=== PATIENT | female | born 1955 | race African-American/Black ===

== ENCOUNTER 2018-09-10 17:55 | Emergency (ER) | payer OTHER ==
[~2018-09-10] VITALS: Ht 154.9 cm; Wt 159.0 kg
[~2018-09-10 17:55] MED LIST: BENADRYL25 M1 PO; DOXYCYCL HYC100 MG PO; ELIMITE5 % TOP; MEDDOSEPAK PO; TRIAMCINOLON0.11 TOP
[2018-09-10 19:09] LABS: ALBUMIN 4.3 g/dL (3.2-5.0); ALKALINE PHOSPHATASE 86 u/l (38-126); ANION GAP 16 (6-22 (CALC)); BILIRUBIN, TOTAL 0.6 mg/dL (0.0-1.4); BUN 13 mg/dL (8-23); BUN/CREATININE RATIO 22 (12-20 (CALC)); CARBON DIOXIDE 25 mmol/l (22-30); CHLORIDE 101 mmol/l (95-108); CREATININE 0.6 mg/dL (0.5-1.0); GFR > 60 ML/MIN (>=60 (CALC)); GFR FOR AFR.AMER. > 60 ML/MIN (>=60 (CALC)); POTASSIUM 4.4 mmol/l (3.5-5.1); SGOT/AST 14 u/l (9-36); SODIUM 138 mmol/l (137-146); TOTAL PROTEIN 8.3 g/dL (6.3-8.2)
[2018-09-10 19:20] LABS: URINE BILIRUBIN - DIPSTICK NEGATIVE (NEGATIVE); URINE BLOOD DIPSTICK TRACE-INTACT (NEGATIVE); URINE COLOR YELLOW; URINE GLUCOSE - DIPSTICK >=1000 mg/dL (NEGATIVE); URINE KETONE 15 mg/dL (NEGATIVE); URINE LEUK ESTERASE TRACE (NEGATIVE); URINE NITRITE - DIPSTICK NEGATIVE (Negative); URINE PH 5.5 (4.5-8.0); URINE PROTEIN - DIPSTICK NEGATIVE (NEG-TRACE); URINE SPECIFIC GRAVITY 1.025
[2018-09-10 19:21] LABS: MYOGLOBIN 28 ng/mL (0 - 62)
[2018-09-10 19:34] LABS: IMMATURE GRANULOCYTES 0.3 % (0.0-5.0); MEAN CELL VOLUME 83.2 fL CALC (80.0-100.0); MEAN CORPUSCULAR HGB 28.1 pG CALC (26.0-32.0); MEAN CORPUSCULAR HGB CONC 33.8 g/L CALC (32.0-36.0); NEUT# 5.38 thou/uL (2.00-7.15); RED BLOOD COUNT 5.41 mill/uL (4.20-5.60); RED CELL DISTRI WIDTH 13.7 % (11.5-15.5)
[2018-09-10 19:35] LABS: HEMOGLOBIN 15.2 g/dl (12.0-16.0)
[2018-09-10 20:08] VITALS: BP 157/82
== END 2018-09-10 20:22 | disposition home or self-care (01) | DRG 313 ==
LOC: ED 17:55
PROVIDERS: Emergency Medicine
DX: R07.89 Other chest pain (principal); M79.601 Pain in right arm

== ENCOUNTER → 2018-09-27 | Outpatient (REF) | payer OTHER ==
[~2018-09-27] MED LIST changes: +FLONASE AL50 MCG/ACT; +LIPITOR10 M1 PO; +LIPITOR20 M1 PO; +LISINOPRIL10 MG PO; +METFORMIN HCL1000 MG PO; +METFORMIN500 MG PO
[2018-09-27 09:04] LABS: CHOLESTEROL HDL RATIO 4.2 (<4.4 (CALC))
[2018-09-27 09:27] LABS: TSH, 3RD GENERATION 5.94 uIU/mL (0.47 - 4.68)
== END | disposition home or self-care (01) | DRG 948 ==
LOC: LAB 08:00
PROVIDERS: ATTEND Nurse Practitioner Family
DX: R79.9 Abnormal finding of blood chemistry, unspecified (principal); Z68.43 Body mass index [BMI] 50.0-59.9, adult; M79.621 Pain in right upper arm; M79.631 Pain in right forearm

== ENCOUNTER → 2018-09-28 | Outpatient (REF) | payer OTHER | END | disposition home or self-care (01) | DRG 951 | LOC: MAMMO 15:00 | PROVIDERS: ATTEND Internal Medicine | DX: Z12.31 Encounter for screening mammogram for malignant neoplasm of breast (principal); N95.1 Menopausal and female climacteric states ==

== ENCOUNTER → 2018-10-24 | Outpatient (REF) | END | disposition home or self-care (01) | DRG 696 | LOC: LAB 15:55 | PROVIDERS: ATTEND Nurse Practitioner Family | DX: R35.0 Frequency of micturition (principal); R79.89 Other specified abnormal findings of blood chemistry ==

== ENCOUNTER → 2018-11-03 | Outpatient (REF) | payer OTHER ==
[~2018-11-03] VITALS: Ht 162.6 cm; Wt 130.6 kg
[2018-11-03 09:43] VITALS: BP 148/80
== END | disposition home or self-care (01) | DRG 951 ==
LOC: FIORUCCI 09:15
PROVIDERS: ATTEND Surgery
DX: Z12.11 Encounter for screening for malignant neoplasm of colon (principal)

== ENCOUNTER 2018-11-10 07:54 | Day surgery (SDC) | payer OTHER ==
[2018-11-10 09:29] VITALS: BP 157/88
== END 2018-11-10 09:50 | disposition home or self-care (01) | DRG 951 ==
LOC: ENDO 07:54
PROVIDERS: ATTEND Surgery
PROC: 0DJD8ZZ Inspection of Lower Intestinal Tract, Via Natural or Artificial Opening Endoscopic (ICD-10-PCS; principal; 2018-11-10)
DX: Z12.11 Encounter for screening for malignant neoplasm of colon (principal); K57.30 Diverticulosis of large intestine without perforation or abscess without bleeding; K64.8 Other hemorrhoids; E11.9 Type 2 diabetes mellitus without complications; I10 Essential (primary) hypertension; F17.210 Nicotine dependence, cigarettes, uncomplicated

== ENCOUNTER 2021-06-22 18:06 | Emergency (ER) | payer BC ==
[~2021-06-22] VITALS: Ht 162.6 cm; Wt 130.0 kg
[2021-06-22 19:44] LABS: HEMATOCRIT 40.4 % (37.0-47.0); HEMOGLOBIN 13.3 g/dl (12.0-16.0); IMMATURE GRANULOCYTES 0.2 % (0.0-5.0); MEAN CELL VOLUME 84.5 fL CALC (80.0-100.0); MEAN CORPUSCULAR HGB 27.8 pG CALC (26.0-32.0); MEAN CORPUSCULAR HGB CONC 32.9 g/dL CAL (32.0-36.0); NEUT# 7.64 thou/uL (2.00-7.15); RED BLOOD COUNT 4.78 mill/uL (4.20-5.60); RED CELL DISTRI WIDTH 13.7 % (11.5-15.5)
[2021-06-22 19:46] LABS: URINE BILIRUBIN - DIPSTICK NEGATIVE (NEGATIVE); URINE BLOOD DIPSTICK NEGATIVE (NEGATIVE); URINE COLOR YELLOW; URINE GLUCOSE - DIPSTICK NEGATIVE (NEGATIVE); URINE KETONE NEGATIVE (NEGATIVE); URINE PROTEIN - DIPSTICK NEGATIVE (NEG-TRACE)
[2021-06-22 19:48] LABS: URINE LEUK ESTERASE SMALL (NEGATIVE); URINE NITRITE - DIPSTICK NEGATIVE (Negative)
[2021-06-22 19:55] LABS: URINE RBC 0-2 RBC/hpf (0-5); URINE SQUAMOUS EPITHELIAL CELL FEW EPI/hpf (0-FEW)
[2021-06-22 19:59] LABS: ALBUMIN 4.2 g/dL (3.2-5.0); AMYLASE 69 u/l (30-110); ANION GAP 13 (6-22 (CALC)); BILIRUBIN, TOTAL 0.8 mg/dL (0.0-1.4); BUN 9 mg/dL (8-23); BUN/CREATININE RATIO 12 (12-20 (CALC)); CARBON DIOXIDE 25 mmol/l (22-30); CHLORIDE 101 mmol/l (95-108); CREATININE 0.8 mg/dL (0.5-1.0); GFR > 60 ML/MIN (>=60 (CALC)); GFR FOR AFR.AMER. > 60 ML/MIN (>=60 (CALC)); LIPASE 20 u/l (23-300); MAGNESIUM 1.4 mg/dL (1.6-2.3); SODIUM 134 mmol/l (137-146); TOTAL PROTEIN 8.4 g/dL (6.3-8.2)
[2021-06-22 20:00] LABS: ALKALINE PHOSPHATASE 85 u/l (38-126); SGOT/AST 40 u/l (9-36)
[2021-06-22 20:11] LABS: MYOGLOBIN 53 ng/mL (0 - 62)
[2021-06-22 20:29] LABS: TSH, 3RD GENERATION 0.77 uIU/mL (0.47 - 4.68)
[2021-06-22] MEDS ORDERED: MAGNESIUM OXID400 M1 PO (20:59)
[2021-06-22] MEDS ORDERED: MIRALAX17 GM PO (20:59)
[2021-06-22] MEDS ORDERED: PEPCID20 MG PO (21:00)
[2021-06-22 21:17] VITALS: BP 165/81
== END 2021-06-22 21:45 | disposition home or self-care (01) | DRG 948 ==
LOC: ED 18:06
PROVIDERS: Family Medicine
DX: R53.1 Weakness (principal); E83.42 Hypomagnesemia; K59.00 Constipation, unspecified; K21.9 Gastro-esophageal reflux disease without esophagitis; E11.9 Type 2 diabetes mellitus without complications; I10 Essential (primary) hypertension; F17.200 Nicotine dependence, unspecified, uncomplicated; Z79.84 Long term (current) use of oral hypoglycemic drugs
CPT/HCPCS: S0164

== ENCOUNTER 2022-01-04 15:08 | Emergency (ER) | payer OTHER, MEDICARE, BC ==
[~2022-01-04] VITALS: Ht 162.6 cm; Wt 113.0 kg
[~2022-01-04 15:08] MED LIST changes: +MAGNESIUM OXID400 M1 PO; +MIRALAX17 GM PO; +PEPCID20 MG PO
[2022-01-04 15:13] VITALS: BP 157/93
[2022-01-04 15:16] VITALS: BP 158/88
[2022-01-04 15:30] VITALS: BP 164/88
[2022-01-04 15:46] VITALS: BP 144/78
[2022-01-04 16:00] VITALS: BP 140/84
[2022-01-04] MEDS ORDERED: NAPROXEN500 MG PO (18:11)
[2022-01-04] MEDS ORDERED: METHOCARBAMOL500 MG PO (18:11)
[2022-01-04 18:32] VITALS: BP 140/84
== END 2022-01-04 18:48 | disposition home or self-care (01) | DRG 605 ==
LOC: ED 15:08
DX: S00.83XA Contusion of other part of head, initial encounter (principal); M54.2 Cervicalgia; M79.604 Pain in right leg; I10 Essential (primary) hypertension; E11.9 Type 2 diabetes mellitus without complications; Z79.84 Long term (current) use of oral hypoglycemic drugs; V49.50XA Passenger injured in collision with unspecified motor vehicles in traffic accident, initial encounter

== ENCOUNTER 2023-03-26 16:24 | Inpatient (IN) | payer MEDICARE ==
[~2023-03-26] VITALS: Ht 165.1 cm; Wt 138.8 kg
[~2023-03-26 16:24] MED LIST changes: +METHOCARBAMOL500 MG PO; +NAPROXEN500 MG PO
--- NOTE | 2023-03-26 16:46 | NUR ---
PT TAKEN TO ER ROOM 2 VIA WHEELCHAIR
--- NOTE | 2023-03-26 16:59 | NUR ---
PT ALERT AND ORIENTED. CC SOB AND FATIGUE. PT STATES THAT SYMPTOMS HAVE PROGRESSIVELY GOTTEN WORST. UPON EXAMINATIONS PT LOWER EXTREMITIES HAVE SIGNIFICANT EDEMA. PROVIDER NOTIFIED. CALL LIGHT WITHIN REACH.
[2023-03-26 17:51] LABS: BASO% 0.1 % (0-3); EOS% 0.1 % (0-8); HEMATOCRIT 41.4 % (37.0-47.0); HEMOGLOBIN 13.5 g/dl (12.0-16.0); IMMATURE GRANULOCYTES 0.3 % (0.0-5.0); LYMPH% 5.6 % (15-41); MEAN CELL VOLUME 87.2 fL CALC (80.0-100.0); MEAN CORPUSCULAR HGB 28.4 pG CALC (26.0-32.0); MEAN CORPUSCULAR HGB CONC 32.6 g/dL CAL (32.0-36.0); MONO% 5.2 % (2-13); NEUT# 12.04 thou/uL (2.00-7.15); NEUT% 88.7 % (42-76); RED BLOOD COUNT 4.75 mill/uL (4.20-5.60); RED CELL DISTRI WIDTH 14.4 % (11.5-15.5)
[2023-03-26 18:01] LABS: ALBUMIN 4.4 g/dL (3.2-5.0); ANION GAP 14 (6-22 (CALC)); BUN 13 mg/dL (8-23); BUN/CREATININE RATIO 16 (12-20 (CALC)); CARBON DIOXIDE 27 mmol/l (22-30); CHLORIDE 103 mmol/l (95-108); CREATININE 0.8 mg/dL (0.5-1.0); GFR FOR AFR.AMER. > 60 ML/MIN (>=60 (CALC)); GFR OTHER RACES > 60 ML/MIN (>=60 (CALC)); POTASSIUM 4.3 mmol/l (3.5-5.1); SODIUM 139 mmol/l (137-146); TOTAL PROTEIN 8.8 g/dL (6.3-8.2)
[2023-03-26 18:15] LABS: ALKALINE PHOSPHATASE 103 u/l (38-126); BILIRUBIN, TOTAL 2.2 mg/dL (0.02-1.3); SGOT/AST 491 u/l (9-36)
--- NOTE | 2023-03-26 18:31 | NUR ---
PT HAS DEVELOPED A FEVER SINCE ARIVING AT ER. CURRENT TEMP 102.5 SUBLINGUAL. PROVIDER NOTIFIED.
[2023-03-26 18:43] LABS: URINE BLOOD DIPSTICK Negative (NEGATIVE); URINE COLOR Dark yellow; URINE GLUCOSE - DIPSTICK Negative (NEGATIVE); URINE KETONE Negative (NEGATIVE); URINE LEUK ESTERASE Negative (NEGATIVE); URINE NITRITE - DIPSTICK Negative (Negative); URINE PROTEIN - DIPSTICK Trace mg/dL (NEG-TRACE); URINE UROBILINOGEN - DIPSTICK >=8.0 E.U./dL (0.2)
--- NOTE | 2023-03-26 18:46 | NUR ---
SEPSIS ALERT CALLED
--- NOTE | 2023-03-26 21:15 | NUR ---
TEMP RETAKEN, 100.3 SUBLINGUAL
[2023-03-26] MEDS ORDERED: LOPRESSOR25 M1 PO (22:05)
[2023-03-26] MEDS ORDERED: SINGULAIR10 MG PO (22:06)
--- NOTE | 2023-03-26 22:50 | NUR ---
PT ARRIVE TO ROOM 272 VIA WHEELCHAIR ACCOMPANIE BY ER STAFF AND FAMILY. PT ABLE TO AMBULATE TO SCALE AND BED. PT IS A&OX3. NO S/S OF DISTRESS NOTED BREATHING IS EVEN AND UNLABORED. PT IS AT ROOM AIR O2 IS AT 94%. PT STATES NKDA. IV TO LAC 20G PATENT AND FLUSHES WELL. NO CANCERN OR NEEDS VOICED. CALL LIGHT IN REACH AND BED IN LOWEST POSITION.
[2023-03-26 22:53] VITALS: BP 105/60
--- NOTE | 2023-03-26 22:55 | NUR ---
TEMP RETAKEN, 99.3 SUBLINGUAL
--- NOTE | 2023-03-26 22:56 | NUR ---
PT CARE REPORT GIVEN TO [facility]. PT TRANSPORTED TO [facility] ROOM 272.
--- NOTE | 2023-03-27 00:35 | NUR ---
ER DOCTOR ARUN NOTIFIED OF PT MEETING CRETERIA OF SEPSIS AND IF HE RECOMENDED TELE MONITORING. ER SEND TELE # 05. TELE IN PLACE PT IS S-TACH 113. NO S/S OF DISTRESS NOTED. BREATHING EVEN AND UNLABORED. NO NEEDS OR CONCERN VOICED. FAMILY MEMBER AT BEDSIDE. CALL LIGHT IN REACH AND BED IN LOWEST POSITION.
--- NOTE | 2023-03-27 04:17 | NUR ---
PT IN BED RESTING WITH EYES CLOSED BREATHING EVEN AND UNLABORED. NO S/S OF DISTRESS NOTED. FAMILY MEMBER AT BEDSIDE. CALL LIGHT IN REACH AND BED IN LOWEST POSITION.
[2023-03-27 04:19] VITALS: BP 122/62
[2023-03-27 05:19] LABS: HEMATOCRIT 37.7 % (37.0-47.0); HEMOGLOBIN 12.3 g/dl (12.0-16.0); MEAN CELL VOLUME 87.5 fL CALC (80.0-100.0); MEAN CORPUSCULAR HGB 28.5 pG CALC (26.0-32.0); MEAN CORPUSCULAR HGB CONC 32.6 g/dL CAL (32.0-36.0); RED BLOOD COUNT 4.31 mill/uL (4.20-5.60); RED CELL DISTRI WIDTH 14.6 % (11.5-15.5)
[2023-03-27 05:22] VITALS: BP 122/62
[2023-03-27 05:54] LABS: ANION GAP 14 (6-22 (CALC)); BUN 15 mg/dL (8-23); BUN/CREATININE RATIO 19 (12-20 (CALC)); CALCULATED LDLCHOLESTEROL 38 mg/dL (62-129 (CALC)); CARBON DIOXIDE 22 mmol/l (22-30); CHLORIDE 104 mmol/l (95-108); CHOLESTEROL HDL RATIO 1.7 (<4.4 (CALC)); CREATININE 0.8 mg/dL (0.5-1.0); GFR FOR AFR.AMER. > 60 ML/MIN (>=60 (CALC)); GFR OTHER RACES > 60 ML/MIN (>=60 (CALC)); HDL CHOLESTEROL 73 mg/dL (39.0-59.0); MAGNESIUM 1.3 mg/dL (1.6-2.3); SODIUM 135 mmol/l (137-146); TOTAL CHOLESTEROL 121 mg/dl (0-199); TOTAL TRIGLYCERIDES 52 mg/dl (0-149); VLDL CHOLESTROL 10 mg/dl (1-41 (CALC))
--- NOTE | 2023-03-27 07:00 | NUR ---
RECEIVED BEDSIDE REPORT FROM CHICO ROCA. PT RESTING IN RECLINER. PT REFUSING LAB DRAWS. EDUCATED ON IMPORTANCE OF MONITORING. PT IS TACHYCARDIC WITH HARD TO READ RHYTHM. EKG ORDERED BY DR THORPE. SHOWS SINUS TACHYCARDIA WITH PVC'S. ALL SAFETY MEASURES IN PLACE. FAMILY IN ROOM WITH PT.
[2023-03-27 07:53] VITALS: BP 101/56
--- NOTE | 2023-03-27 19:22 | NUR ---
REPORT RECEIVED FROM Imelda STOUT RN.
--- NOTE | 2023-03-27 19:45 | NUR ---
ZOFRAN GIVEN FOR NAUSEA. PATIENT HAS VOMITED X3 PER DAUGHTER. JUST PRIOR TO WRITTER ARRIVAL PATIENT VOMITED IN BATH BASIN, DARK YELLOW GREEN LIQUID EMESIS NOTED. PATIENT ALSO COMPLAINING OF SEVERE EPIGASTRIC PAIN.PATIENT BEST DESCRIBES IT STABBING IN NATURE.
--- NOTE | 2023-03-27 19:55 | NUR ---
CALL TO DR THORPE AT [phone] NOTIFIED PROVIDER OF PATIENT COMPLAINT OF SEVERE PAIN IN HER EPIGASTRIC REGION, AND REPORTED GREEN YELLO EMESIS X3. NOTIFIED PROVIDER THAT DAUGHTER AT BEDSIDE IS SUGGESTING TORADOL FOR HER MOTHERS PAIN. PER PROVIDER HE WILL REVIEW THE PATIENTS CHART AND WILL EITHER ADD PRN MORPHINE OR TORADOL. PATIENT/ DAUGHTERS AT BEDSIDE UPDATED ON POC.
--- NOTE | 2023-03-27 20:27 | NUR ---
CALL TO [facility] REGARDING UNVERFIED TORADOL ORDER. SPOKE TO DUKE (ESTEE) AT PHONE NUMBER , PER TECH HE WILL LET THE PHARMACIST KNOW.
[2023-03-27 20:35] VITALS: BP 160/87
--- NOTE | 2023-03-27 21:06 | NUR ---
PATIENT UNABLE TO TOLERATE HER PO LOPRESSOR. CURRENT B/P 160/87. NOTIFIED DR ARANA OF THESE FINDINGS, PER MD HE WILL ADD HYDRALAZINE FOR B/P >180. PROVIDER STATES, B/P PROBABLY ELEVATED FROM CURRENT VOMITNING. PROVIDER MADE AWARE OF CURRENT BLOOD SUGAR OF 221 AND PATIENTS CURRENT AVERSION TO FOOD DUE TO VOMITING. WRITTER SUGGESTING TO HOLD PM LEVEMIR SINCE PATIENT IS NOT EATING. PER DR THOPRE WRITTER CAN GIVE LEVEMIR AND MONITOR FOR S/S OF HYPOGLYCEMIA.
--- NOTE | 2023-03-27 22:20 | NUR ---
AZITHROMYCIN HUNG AT THIS TIME. IV DRESSING CHANGED AND SECURED WITH COBAN, IV FLUSHED AND PATENT.
--- NOTE | 2023-03-27 22:22 | NUR ---
DAUGHTER (XIN) AT BEDSIDE UPDATED ON PLAN OF CARE, CONFERENCED WITH OTHER DAUGHTER, (KRISTI) VIA PHONE. PER KRISTI, THEY DO NOT WANT HER MOTHER TO HAVE LEVEMIR TONIGHT; DAUGHTER REPORTS PATIENT HAS NEVER BEEN ON INSULIN, WELL PATIENT NOT BEING ABLE TO EAT RELATED TO ULTRASOUND AND VOMINTING, CONCERNS TO WHY THE PATIENT SHOULD NOT GET INSULING TONIGHT. DAUGHTER STATES "WE ARE REFUSING LEVEMIR". PATIENT AGREEABLE WITH DAUGHTERS SUGGESTION.
--- NOTE | 2023-03-28 00:20 | NUR ---
MAXIPINE HUNG AT THIS TIME.
--- NOTE | 2023-03-28 00:45 | NUR ---
PATIENT REMINDED THAT SHE IS NPO IN PREPARATION FOR HER ULTRASOUND THIS AM.
--- NOTE | 2023-03-28 00:55 | NUR ---
[place] HUNG AT THIS TIME.
[2023-03-28 00:58] VITALS: BP 140/73
--- NOTE | 2023-03-28 04:35 | NUR ---
LAB AT BEDSIDE OBTIANING MORNING LABS,
[2023-03-28 04:45] VITALS: BP 143/74
[2023-03-28 04:47] LABS: HEMATOCRIT 37.8 % (37.0-47.0); HEMOGLOBIN 12.2 g/dl (12.0-16.0); MEAN CELL VOLUME 86.9 fL CALC (80.0-100.0); MEAN CORPUSCULAR HGB CONC 32.3 g/dL CAL (32.0-36.0); RED BLOOD COUNT 4.35 mill/uL (4.20-5.60); RED CELL DISTRI WIDTH 14.4 % (11.5-15.5)
[2023-03-28 04:52] LABS: ALKALINE PHOSPHATASE 86 u/l (38-126); ANION GAP 11 (6-22 (CALC)); BUN 15 mg/dL (8-23); BUN/CREATININE RATIO 20 (12-20 (CALC)); CARBON DIOXIDE 25 mmol/l (22-30); CHLORIDE 102 mmol/l (95-108); CREATININE 0.8 mg/dL (0.5-1.0); GFR FOR AFR.AMER. > 60 ML/MIN (>=60 (CALC)); GFR OTHER RACES > 60 ML/MIN (>=60 (CALC)); POTASSIUM 3.8 mmol/l (3.5-5.1); SGOT/AST 130 u/l (9-36); SODIUM 134 mmol/l (137-146); TOTAL PROTEIN 7.3 g/dL (6.3-8.2)
[2023-03-28 05:10] LABS: ALBUMIN 3.5 g/dL (3.2-5.0); BILIRUBIN, TOTAL 0.9 mg/dL (0.02-1.3); MAGNESIUM 1.7 mg/dL (1.6-2.3)
[2023-03-28 06:15] VITALS: BP 132/71
--- NOTE | 2023-03-28 06:30 | NUR ---
PATIENT PLACED ON 2L OF OXYGEN AT THIS TIME. O2 86%. PATIENT AND DAUGHTER AT BEDSIDE DENY ANY DIAGNOSED HX OF SLEEP APNEA. AERIAL SURVEY TECHNICIAN NOTIFIED.
--- NOTE | 2023-03-28 07:32 | NUR ---
BEDSIDE SHIFT REPORT, PT AWAKE ALERT AND ORIENTEAD SITTING UP IN RECLINER, NO C/O DISCOMFORT AT THIS TIME, O2 @ 2/ VIA NC IN PLACE, TELE MONITOR IN PLACE, CALL ANNE IN REACH AND BED LOCKED IN LOWEST POSITION. DAUGHTER AT BEDSIDE.
--- NOTE | 2023-03-28 09:57 | NUR ---
TRANSPORTED OFF UNIT VIA W/C AT THIS TIME TO US, PT ALREADY INFORMED OF PROCEDURE AND REMINDED.
--- NOTE | 2023-03-28 10:41 | NUR ---
PRELIMINARY BLOOD CULTURE RESULTS CALLED TO GIOVANA MUELLER. NO NEW ORDERS AT THIS TIME.
--- NOTE | 2023-03-28 10:45 | NUR ---
RETURNED FROM PROCEDURE AND SETTLED IN RECLINER, ALL NEEDS MET/ADDRESSED.
[2023-03-28 10:51] VITALS: BP 113/70
[2023-03-28 14:57] VITALS: BP 106/57
[2023-03-28 19:00] VITALS: BP 121/63
--- NOTE | 2023-03-28 19:18 | NUR ---
REPORT RECEIVED FROM Isabel BRASWELL RN
--- NOTE | 2023-03-28 19:45 | NUR ---
PATIENT RESTING IN RECLINER. IN GOOD SPIRITS. DENIES ANY CURRENT PAIN. NO APPARENT DISTRESS NOTED. RESPIRATIONS EVEN AND UNLABORED. CALL LIGHT AND BEDSIDE TABLE WITHIN REACH. DAUGHTER AT BEDSIDE.
--- NOTE | 2023-03-28 21:24 | NUR ---
[place] HUNG AT THIS TIME.
--- NOTE | 2023-03-28 22:38 | NUR ---
AZYTHROMYCIN HUNG AT THIS TIME.
--- NOTE | 2023-03-28 23:45 | NUR ---
MAXIPINE HUNG AT THIS TIME.
[2023-03-29] VITALS (8 sets, daily range): BP systolic 99–131; BP diastolic 49–72
--- NOTE | 2023-03-29 00:30 | NUR ---
PATIENT MEDICATED FOR PAIN WITH TORADOL, PATIENT ALSO EXPERIENCING NASUEA AT THIS TIME. ZOFRAN ADMINISTED. CALL LIGHT AND BEDSIDE TABLE WITHIN REACH. DAUGHTER AT BEDSIDE.
--- NOTE | 2023-03-29 04:27 | NUR ---
PATIENT RESTING IN BED, AWOKEN BY WRITTER. PATIENT IN NO APPARENT DISTRESS, RESPIRATIONS EVEN AND UNLABORED. CALL LIGHT AND BEDSIDE TABLE WITHIN REACH. DAUGHTER REMAINS AT BEDSIDE.
--- NOTE | 2023-03-29 04:38 | NUR ---
LAB AT BEDSIDE OBTAINING MORNING LABS.
--- NOTE | 2023-03-29 05:00 | NUR ---
PATIENT REFUSED INSULIN TONIGHT. BLOOD SUAGAR 169, PATIENT STATES SHE IS NOT EATING LIKE SHE SHOULD AND IS AFRAID OF HER BLOOD SUGAR DROPPING WITH THE LEVEMIR.
[2023-03-29 05:34] LABS: BASO% 0.3 % (0-3); EOS% 3.1 % (0-8); HEMATOCRIT 35.8 % (37.0-47.0); HEMOGLOBIN 11.6 g/dl (12.0-16.0); IMMATURE GRANULOCYTES 0.9 % (0.0-5.0); LYMPH% 19.6 % (15-41); MEAN CELL VOLUME 86.9 fL CALC (80.0-100.0); MEAN CORPUSCULAR HGB 28.2 pG CALC (26.0-32.0); MEAN CORPUSCULAR HGB CONC 32.4 g/dL CAL (32.0-36.0); MONO% 9.3 % (2-13); NEUT# 6.98 thou/uL (2.00-7.15); NEUT% 66.8 % (42-76); RED BLOOD COUNT 4.12 mill/uL (4.20-5.60); RED CELL DISTRI WIDTH 14.3 % (11.5-15.5)
[2023-03-29 05:52] LABS: ALBUMIN 3.3 g/dL (3.2-5.0); ALKALINE PHOSPHATASE 97 u/l (38-126); ANION GAP 10 (6-22 (CALC)); BILIRUBIN, TOTAL 0.8 mg/dL (0.02-1.3); BUN 15 mg/dL (8-23); BUN/CREATININE RATIO 19 (12-20 (CALC)); CARBON DIOXIDE 26 mmol/l (22-30); CHLORIDE 103 mmol/l (95-108); CREATININE 0.8 mg/dL (0.5-1.0); GFR FOR AFR.AMER. > 60 ML/MIN (>=60 (CALC)); GFR OTHER RACES > 60 ML/MIN (>=60 (CALC)); MAGNESIUM 2.1 mg/dL (1.6-2.3); POTASSIUM 3.7 mmol/l (3.5-5.1); SGOT/AST 63 u/l (9-36); SODIUM 135 mmol/l (137-146); TOTAL PROTEIN 7.2 g/dL (6.3-8.2)
--- NOTE | 2023-03-29 05:53 | NUR ---
PATIENT SLEEPING. ATTEMPTED TO WAKE PATIENT TO OBTAIN HER WEIGHT. PATIENT DID NOT SLEEP UNTIL LATER IN THE SHIFT. RESPIRATIONS EVEN AND UNLABORED. VSS WNL. WILL COME BACK AND ATTEMPT AT A LATER TIME.
--- NOTE | 2023-03-29 08:00 | NUR ---
PT UP IN CHAIR, ALERT AND ORIENTED; PT C/O PAIN AT 7/10 ON PAIN SCALE IN UPPER ABD AND ALSO C/O NAUSUA; PT REFUSES BREAKFAST AT THIS TIME. MEDICATED WITH ZOFRAN AND PRN PAIN MEDICATION. TELE ON WITH ALL LEADS ATTACHED. PT LUNG SOUNDS CLEAR. ABD DISTENDED AND SOFT WITH ACTIVE BS. BLE WITH 3+ PITTING EDEMA. IV SITE TO LAC CLEAN AND INTACT. PT AMBULATES WITH ASSIST TO BATHROOM FOR TOILETING NEEDS. PT DAUGHTER IN ROOM AT BEDSIDE. PT HAS CALL LIGHT EMELIAHTIN REACH AND ALL SAFETY MEASURES IN PLACE.
--- NOTE | 2023-03-29 12:00 | NUR ---
PT UP IN CHAIR AT BEDSIDE, ALERT AND ORIENTED. PT HAS NO C/O PAIN AT THIS TIME. PT DAUGHTER IS AT BEDSIDE. PT REFUSES LUNCH, STATES SHE IS NOT HUNGRY. PT HAS CALL LIGHT WITHIN REACH AND ALL SAFETY MEASURES IN PLACE.
--- NOTE | 2023-03-29 16:00 | NUR ---
PT SITTING UP IN CHAIR WITH FAMILY AT BEDSIDE. ALERT AND ORIENTED. [facility] CALLED WITH BED AVAILABLE. [facility] WILL BE CONTACTED TO [facility] COORDINATOR PT AND TRANSFER TO [facility]. PT HAS CALL LIGHT WITHIN REACH AND ALL SAFETY MEASURES IN PLACE AT THIS TIME.
--- NOTE | 2023-03-29 16:08 | NUR ---
nursing supervisor type disk quality control called and gave room number for this pt to go to [place] room 664b and report number for nurse [phone].
--- NOTE | 2023-03-29 16:48 | NUR ---
called [facility] for transfer of this pt to [facility]. spoke to echo that stated they are on stand by for the [facility] at the moment and a eta wasnt given due to their status. also stated that they have another transport ahead of us. nurse aware of situation. echo stated [facility] will call me with an eta as soon as it is lifted.
--- NOTE | 2023-03-29 18:50 | NUR ---
REPORT RECEIVED FROM Giovani MICHELLE LPN. PATIENT TO BE TRANSFERRED LATER THIS SHIFT TO [facility] PER SURGERY'S CONSULT. TRANSFER INITIATED, BED ASIGNED TO PATIENT. PATIENT WILL BE GOING TO [facility] ROOM 664B. AWAITING AVAILABILITY OF POSTIVE MEDICAL TRANSPORT.
--- NOTE | 2023-03-29 19:30 | NUR ---
PATIENT UPDATED ON PLAN OF CARE FOR TONIGHT. PATIENT AWARE SHE IS TRANFERRING TO [facility]. PATIENT SITTING UP IN RECLINER, NO APPARENT DISTRESS, RESPIRATIONS EVEN AND UNLABORED, CALL LIGHT AND BEDSIDE TABLE WITHIN REACH. DAUGHTER AT BEDSIDE. IV TO RIGHT HAND FLUSHED AND PATENT.
--- NOTE | 2023-03-29 23:06 | NUR ---
CALL RECEIVED FROM [facility] REGARDING ETA OF MEDICAL TRANSPORT. ETA OF 30MIN GIVEN.
--- NOTE | 2023-03-29 23:10 | NUR ---
ANTIBIOTIC HUNG AT THIS TIME. TORADOL GIVEN FOR EPIGASTRIC PAIN 04/24, ZOFRAN GIVEN FOR NAUSEA.
[2023-03-30 00:04] VITALS: BP 125/61
--- NOTE | 2023-03-30 00:14 | NUR ---
Patient transferred in stable condition via Medical Transport to [facility]. All belongings sent with pt.
--- NOTE | 2023-03-30 00:20 | NUR ---
ATTEMPT TO CALL REPORT AT THIS TIME. PHONE [facility]ER CALLED [phone]. BUSY SIGNAL.
--- NOTE | 2023-03-30 09:38 | NUR ---
BLO[facility] C[facility]
== END 2023-03-30 00:14 | disposition short-term general hospital (02) | DRG 444 ==
LOC: ED 16:24 → MS2 21:24
PROVIDERS: Family Medicine; Nurse Practitioner Family; ADMIT Student in an Organized Health Care Education/Training Program; ATTEND Student in an Organized Health Care Education/Training Program
DX: K80.00 Calculus of gallbladder with acute cholecystitis without obstruction (principal); J18.9 Pneumonia, unspecified organism; R78.81 Bacteremia; I10 Essential (primary) hypertension; E11.9 Type 2 diabetes mellitus without complications; E78.00 Pure hypercholesterolemia, unspecified; R60.0 Localized edema; Z79.84 Long term (current) use of oral hypoglycemic drugs; Z20.822 Contact with and (suspected) exposure to COVID-19
CPT/HCPCS: J0692; J1650; J3475; Q9967; S0164